=== PATIENT | female | born 1950 | race Asian ===

== ENCOUNTER → 2017-03-01 | Outpatient (CLI) | payer MEDICARE ==
[~2017-03-01] MED LIST: ASCO10004 PO; CALC1CAP8 PO; LOSA1TAB18 PO; MAGNESIUM PO; MULT-516 PO; OXYC-302 PO; POTA8TAB6 PO; ROSU20TA PO
== END | disposition home or self-care (01) ==
LOC: CFH 13:00
PROVIDERS: ATTEND Family Medicine
DX: R22.1 Localized swelling, mass and lump, neck (principal); E89.0 Postprocedural hypothyroidism
CPT/HCPCS: 76536

== ENCOUNTER → 2017-05-03 | Outpatient (CLI) | payer MEDICARE | END | disposition home or self-care (01) | LOC: CFH 08:55 | PROVIDERS: ATTEND Family Medicine | DX: Z12.31 Encounter for screening mammogram for malignant neoplasm of breast (principal) | CPT/HCPCS: G0202 ==

== ENCOUNTER 2020-12-24 17:57 | Emergency (ER) | payer MEDICARE, MEDICAID ==
[~2020-12-24] VITALS: Ht 162.6 cm; Wt 82.3 kg
[~2020-12-24 17:57] MED LIST changes: +ASCO100018 PO; -ASCO10004 PO; -LOSA1TAB18 PO; +LOSA1TAB25 PO; -OXYC-302 PO; +OXYC1TAB14 PO; -ROSU20TA PO; +ROSU20TA2 PO
--- NOTE | 2020-12-24 18:23 | NUR ---
DIRECTOR OF MATERIALS: PT AMBULATORY TO ROOM FROM LOBBY
--- NOTE | 2020-12-24 19:01 | NUR ---
PT IN GOWN AND IN ROOM. PT ABLE TO AMBULATE TO RESTROOM BY SELF AND STEADY.
--- NOTE | 2020-12-24 19:54 | NUR ---
Task RN: bedside female chapperone by this RN for rectal exam by MD. well tolerated by pt
[2020-12-24 20:18] VITALS: BP 160/75
== END 2020-12-24 20:22 | disposition home or self-care (01) ==
LOC: ED 20:00
DX: K64.8 Other hemorrhoids (principal); K62.5 Hemorrhage of anus and rectum; I10 Essential (primary) hypertension; E11.9 Type 2 diabetes mellitus without complications
CPT/HCPCS: 99283

== ENCOUNTER → 2021-03-18 | Outpatient (CLI) | payer MEDICARE, MEDICAID ==
[~2021-03-18] MED LIST changes: +CALC-534 PO; +CHOL10003 PO; +LEVO112T4 PO; +METF500T17 PO; +OXYC1TAB12 PO; -OXYC1TAB14 PO
[2021-03-18 08:48] LABS: ALANINE AMINOTRANSFERASE 25 U/L (12-78); CALCIUM 9.3 mg/dL (8.5-10.1); CREATININE 0.73 mg/dL (0.55-1.02)
[2021-03-18 08:50] LABS: ALKALINE PHOSPHATASE 41 U/L (45-117); BILIRUBIN,TOTAL 0.6 mg/dL (0.2-1.0); TOTAL PROTEIN 8.7 g/dL (6.4-8.2)
[2021-03-18 09:01] LABS: CHLORIDE 106 mmol/L (98-107)
[2021-03-18 09:02] LABS: ANION GAP 4 mmol/L (5-15)
== END | disposition home or self-care (01) ==
LOC: STAR 08:00
PROVIDERS: ATTEND Otolaryngology
DX: Z01.818 Encounter for other preprocedural examination (principal); D49.0 Neoplasm of unspecified behavior of digestive system
CPT/HCPCS: 36415; 80053; 93005

== ENCOUNTER 2021-03-24 05:54 | Day surgery (SDC) | payer MEDICARE, MEDICAID ==
[2021-03-18 07:52] VITALS: BP 139/85
[~2021-03-24] VITALS: Ht 162.6 cm; Wt 84.1 kg
[~2021-03-24 05:54] MED LIST changes: -OXYC1TAB12 PO; +OXYC1TAB14 PO
[2021-03-24] MEDS ORDERED: NEOSPORIN OINT, 15GM ONE (06:12)
[2021-03-24] MEDS ORDERED: LIDOCAINE/PF 1%, 30ML ONE (06:12)
[2021-03-24] MEDS ORDERED: EPINEPHRINE 1 MG/ML, 1ML ONE (06:12)
[2021-03-24] MEDS ORDERED: CHLORHEXIDINE 15 ML UDC ONE (06:37)
[2021-03-24] MEDS ORDERED: FENTANYL PF 250 MCG/5ML ONE (06:49)
[2021-03-24] MEDS ORDERED: CHLORHEXIDINE 15 ML UDC PO ONE (07:00)
[2021-03-24] MEDS ORDERED: LACTATED RINGERS 1,000 ML IV SCH (07:00)
[2021-03-24] MEDS ORDERED: ONDANSETRON 2MG/ML, 2ML IVPush PRN (08:30)
[2021-03-24] MEDS ORDERED: hydrALAzine 20 MG/ML, 1ML IV PRN (08:30)
[2021-03-24] MEDS ORDERED: LORazepam 2 MG/ML, 1ML IVPush PRN (08:30)
[2021-03-24] MEDS ORDERED: HYDROmorphone 1 MG/ML, 1ML INJ IVPush PRN (08:30)
[2021-03-24] MEDS ORDERED: OXYcodone 5 MG/5 ML ORAL.SOL UDC PO PRN (08:30)
[2021-03-24] MEDS ORDERED: PROMETHAZINE 25 MG SUPP PR PRN (08:30)
[2021-03-24] MEDS ORDERED: FENTANYL PF 100 MCG/2ML IV PRN (08:30)
[2021-03-24] MEDS ORDERED: PROMETHAZINE 25 MG/ML, 1ML IVPush PRN (08:30)
[2021-03-24] MEDS ORDERED: ALBUTEROL SULFATE 2.5 MG/3 ML NPPB PRN (08:30)
[2021-03-24] MEDS ORDERED: LABETALOL 5MG/ML, 20ML IV PRN (08:30)
[2021-03-24] MEDS ORDERED: METHOCARBAMOL 1,000 MG in DEXTROSE 5% 100 ML IV PRN (08:30)
[2021-03-24] MEDS ORDERED: METOPROLOL 1 MG/ML, 5ML IV PRN (08:30)
[2021-03-24] MEDS ORDERED: ACETAMINOPHEN 325 MG TABLET PO PRN (08:30)
[2021-03-24] MEDS ORDERED: NEOSTIGMINE 1 MG/ML, 10ML ONE (09:23)
[2021-03-24] MEDS ORDERED: DEXAMETHASONE 4 MG/ML, 1ML ONE (09:23)
[2021-03-24] MEDS ORDERED: PROPOFOL 10 MG/ML, 20ML ONE (09:23)
[2021-03-24] MEDS ORDERED: SUCCINYLCHOLINE 20 MG/ML, 10ML ONE (09:23)
[2021-03-24] MEDS ORDERED: ONDANSETRON 2MG/ML, 2ML ONE (09:23)
[2021-03-24] MEDS ORDERED: CEFAZOLIN 1,000 MG ONE (09:23)
[2021-03-24] MEDS ORDERED: GLYCOPYRROLATE 0.2MG/1ML, 5ML ONE (09:23)
[2021-03-24] MEDS ORDERED: ROCURONIUM 10MG/ML,5ML ONE (09:23)
[2021-03-24] MEDS ORDERED: ACETAMINOPHEN 650 MG/20.3 ML UDC ONE (10:31)
== END 2021-03-24 12:20 | disposition home or self-care (01) ==
LOC: OUT 05:54
PROVIDERS: ATTEND Otolaryngology
DX: D37.030 Neoplasm of uncertain behavior of the parotid salivary glands (principal); C07 Malignant neoplasm of parotid gland; I10 Essential (primary) hypertension; E11.9 Type 2 diabetes mellitus without complications; Z79.899 Other long term (current) drug therapy
CPT/HCPCS: 42420; 82962; 88307; J0171; J0330; J0690; J1100; J2405; J2704; J2710; J3010; J7120